=== PATIENT | male | born 1970 | race American Indian/Alaskan Native ===

== ENCOUNTER 2017-10-25 03:27 | Emergency (ER) | payer SELFPAY ==
[2017-10-25 03:52] VITALS: BMI 30.7
[2017-10-25 03:58] VITALS: RESP 18; TEMP 98.7
[2017-10-25 07:22] VITALS: BP 138/82; PULSE 85; O2SAT 100
== END 2017-10-25 04:33 | disposition left against medical advice (07) ==
LOC: ED 03:27
DX: Z02.89 Encounter for other administrative examinations (principal); M79.604 Pain in right leg

== ENCOUNTER 2017-10-25 06:24 | Emergency (ER) | payer SELFPAY ==
[2017-10-25 06:24] VITALS: BMI 30.7
[2017-10-25 07:34] VITALS: BP 135/79; PULSE 72; RESP 18; TEMP 98.2; O2SAT 99
== END 2017-10-25 07:25 | disposition left against medical advice (07) ==
LOC: ED 06:24
DX: Z02.89 Encounter for other administrative examinations (principal); F32.9 Major depressive disorder, single episode, unspecified